=== PATIENT | female | born 1945 | race Caucasian/White ===

== ENCOUNTER 2021-12-29 06:25 | Day surgery (SDC) | payer MEDICARE, BC, SELFPAY ==
[2021-12-29] VITALS (12 sets, daily range): BP systolic 107–176; BP diastolic 60–99; PULSE 64–90; RESP 16–18; TEMP 36.1–36.7; O2SAT 95–100; BMI 25.8
[2021-12-29] MEDS: LACTATED RINGERS 1000 ML 1,000 ML 100 ML IV (07:00)
[2021-12-29] MEDS: SODIUM CHLORIDE 0.9 % (FLUSH) 10 ML SYRINGE IVF (07:01)
[2021-12-29] MEDS: CEFAZOLIN 2 GM INJ IVP (07:44)
[2021-12-29] MEDS: ROPIVACAINE 0.5% 30 ML 150 MG INJECTION (08:25)
--- NOTE | 2021-12-29 08:30 | PM.ORPRC ---
Procedure Note Date of procedure: 12/29/21 Procedure: PREOPERATIVE DIAGNOSIS: 1. Right knee medial and lateral meniscus tear POSTOPERATIVE DIAGNOSIS: 1. Right knee lateral meniscus tear 2. 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 Right knee arthroscopic partial lateral menisectomy SURGEON: Ascencion Fisher M.D. HEALTH PROGRAM DIRECTOR: ABBIE Crawford. Of note, an assistant professor of theater was critical for this case to aid in patient positioning, knee manipulation, instrument exchange, and closure. ANESTHESIA: Spinal EBL: 2ml TOURNIQUET: 30 min at 250 torr COMPLICATIONS: None evident INDICATIONS: The patient is a pleasant 76-year-old female who has experienced right knee pain particularly with any twisting or turning. Physical exam was concerning for medial meniscus tear, this was confirmed on MRI. The MRI also revealed a stress fracture lateral tibial plateau. This was treated nonoperatively with nonweightbearing to allow the bone to heal. Unfortunately, after resolving this, she continued to have pain about the lateral compartment of her knee. This was more suspicious for meniscus pathology. Therefore, attempted nonoperative management has been tried, and failed. Thus, surgery was recommended. FINDINGS: Complex tearing lateral meniscus from the posterior horn to midbody. Posterior root was intact. The lateral femoral condyle showed grade 4 chondromalacia in region measuring 6 x 20 mm in the M-L and A-P directions, respectively. ACL and PCL were intact robust. Medial meniscus was intact without evidence of tearing upon viewing or probing. Medial femoral condyle showed grade 2 chondromalacia broadly to the weight-bearing portion. DESCRIPTION OF PROCEDURE: After a thorough discussion of risks, benefits, and alternatives, the patient was brought to the operating room and placed upon the operating table. Induction of anesthesia was undertaken as previously noted. 1 g IV Ancef was administered within 1 hr of incision preoperatively. Appropriate time-out was performed identifying proper patient, site, and procedure. The right lower extremity was prepped and draped in the appropriate sterile fashion using ChloraPrep. The limb was exsanguinated and tourniquet inflated. Anterolateral and anteromedial portals were established with an 11 blade, and a diagnostic arthroscopy was performed. This identified the findings as noted above. Following the diagnostic arthroscopy, a partial lateral menisectomy was performed with the combination of basket forceps and a motorized shaver. Following this, the meniscus was re-probed and found to be stable. Approximately 40-50 % of the overall meniscus required resection. At this stage, the shaver was reinserted into the suprapatellar pouch and all remaining meniscal debris was evacuated. Instruments were removed, excess fluid was drained, and closure performed with 4-0 Monocryl with Steri-Strips. Dressings were applied, the tourniquet deflated, and the patient was awoken from anesthesia and transferred to the PACU in stable condition. PLAN: 1. Weightbear as tolerated operative extremity. Crutch / walker ambulation assistance PRN. 2. Ice, acetominophen and/or ibuprofen, and Percocet for pain as needed. 3. Knee range of motion and quad sets/straight leg raise regularly 4. Follow up with PA visit in 1-2 weeks for a wound check and possibly to initiate physical therapy. gurpreet
--- NOTE | 2021-12-29 08:37 | W.ANESCHARGE ---
Anesthesia Charges Start Date/Time Anesthesia Start Date: 12/29/21 Anesthesia Start Time: 07:34 Stop Date/Time Anesthesia Stop Date: 12/29/21 Anesthesia Stop Time: 08:38 Summary Emergency: No Extremes of Age: Over 70-CPT 38191
--- NOTE | 2021-12-29 08:40 | PC.NURSE ---
CONTINUOUS IRRIGATION WITH NORMAL SALINE DURING PROCEDURE
--- NOTE | 2021-12-29 10:49 | W.ANESCHARGE ---
Anesthesia Charges Start Date/Time Anesthesia Start Date: 12/29/21 Anesthesia Start Time: 07:34 Stop Date/Time Anesthesia Stop Date: 12/29/21 Anesthesia Stop Time: 08:38 Summary Emergency: No Extremes of Age: Over 70-CPT 23456
== END 2021-12-29 10:35 | disposition home or self-care (01) ==
PROVIDERS: Visit Provider Orthopaedic Surgery Sports Medicine
PROC: (CPT 29870; principal; 2021-12-29 07:45)
DX: M23.251 Derangement of posterior horn of lateral meniscus due to old tear or injury, right knee (principal); M22.41 Chondromalacia patellae, right knee
CPT/HCPCS: 29881; 01400; 99100; J0690; J1100; J2250; J2400; J2405; J2704; J2795; J3010; J7120

== ENCOUNTER 2022-04-02 09:15 | Outpatient (RCR) | payer MEDICARE, BC, SELFPAY ==
--- NOTE | 2022-02-06 11:36 | PT.OPEX ---
Please sign below for physical therapy POC and examination completed on 02/06/22. Thank you. PT [place] Outpatient Eval PT [facility] Outpatient Eval Start: 02/03/22 08:45 Freq: Status: Active Protocol: Document 02/06/22 08:21 TLQ (Rec: 02/06/22 10:00 TLQ [id number]) E-signed By Tami Lewis DPT Physical Therapy Outpatient Evaluation Insurance Information Recert Due Date 04/07/22 Insurance Name Medicare B Medical Diagnosis s/p R knee meniscectomy (Z98.890) Treating Diagnosis Stiffness in R knee (M25.661) R knee pain (M25.561) Difficulty walking (R26.2) Muscle weakness (M62.81) Referring MD Yadav Subjective Subjective Patient had R knee meniscectomy on 12/29/21. Reports its still swollen and fairly uncomfortable. States she ices her knee about 1-2x per day, elevates her foot when icing. Also has compression sleeve that she has been wearing to help with the swelling. If I sit with my foot elevated it feels fine but if I do any physical activity it hurts. Walking and when doing stairs. Her bedroom is upstairs so she tries to only do the stairs once in the morning and once in the afternoon. Has railing on the R side of the stairs when going up. Takes steps one step at a time. Has a recumbent bike that she tries to ride for about 45 minutes a day. PMH: HTN, cancer, osteoporosis , arthritis Pain Comments 5/10 at worst, located on lateral aspect of R knee Date of Last Physician Visit 01/20/22 Date of Surgery (If applicable) 01/29/22 Current Work Status Retired Precautions Therapy Limitations/Systems Review Not Limited Objective Range of Motion Hip: WFL Knee: L 3-0-135 R +13-14-122, more painful with active extension Strength Hip: flexion - L 4/5, R 3/5 abduction - L 4+/5, R 3+/5 internal rotation - L 4/5, R 3 /5 external rotation - L 5/5, R 3 /5 Ankle/foot: dorsiflexion - L 5/5, R 5/5 plantarflexion - L 15, R 6 with 50% excursion Swelling Circumference: 2 proximal knee - L 16cm, R 18.25cm knee - L 16cm, R 17.5cm 2 disital knee - L 14cm, R 15 .25cm Palpation TTP R vastus lateralis and ITB patellar mobility - hypomobile in all glides Balance & Gait Balance: 5xSTS - 36 seconds with arms crossed, weight bears more through LLE Gait: ambulates without use of A.D., antalgic pattern, decreased philip, lacks full knee extension on R, decreased weight shift onto R Sensation/Reflexes Sensation - decreased in toes bilaterally Other/Pertinent Objective Atrophy of R quadricep SLR - able to complete full SLR on R but fatigues quickly with prolonged quadricep activation Stairs - not assessed this visit, plan to assess pattern next visit Functional Test Performed & Score LEFS score (02/06/22) - 34/80 (42.5% functional) MCID - 9 points Assessment Assessment/Impression Patient is a 76 year old female who presents to physical therapy today post R meniscectomy performed on 12/29. Patient has noticeable atrophy of her R quadricep muscle compared to L, has edema around R knee identified with circumferential measurements. Presents with bilateral LE weakness, more pronounced on R. Pain and weakness limiting patients R knee range of motion, rests in 14 degrees of knee flexion, actively lacks 13 degrees from full knee extension. Ambulates with antalgic gait pattern, decreased philip and decreased weight bearing through RLE. Completed 5x sit to stand test in 36 seconds which places her at an increased risk for falls. Patient will greatly benefit from skilled therapeutic intervention to increase strength, improve joint mobility, and improve balance to reduce pain and improve patient's mobility for safe navigation of her home environment. Primary Functional Limitations R knee pain, decreased active R knee range of motion, RLE weakness, antalgic gait pattern, impaired mobility Plan of Care Rehabilitation Potential Good Physical Therapy Goals STG - Patient will improve R knee extension ROM to +5 degrees for improved mobility in 4 weeks. STG - Patient will decrease subjective report of pain from 5/10 to 2/10 for improved symptoms and participation in daily activities in 6 weeks. LTG - Patient will improve R knee extension to neutral for ROM needed for normal gait pattern in 10 weeks. LTG - Gross LE strength will increase to 5/5 for improved functional strength needed for transitional movements in 10 weeks. LTG - Patient will complete 5xSTS in <15 seconds to reduce her risk of falls in 10 weeks . LTG - Patient will adhere to HEP to manage symptoms IND at home in 10 weeks. Treatment Plan/Direct Interventions Electrical Stimulation,Gait Training,Ice/Cold/ Vasopneumatic,Joint Mobilization,Manual Therapy, Therapeutic Activities, Therapeutic Exercises Frequency/Duration 2x/week for 2 weeks followed by 1x/week for 6-8 weeks Patient Will Be Discharged From Therapy Completion of LTG(s),Skills Plateau,Independent w/HEP, Independently Progressing Evaluation Billing Untimed Code Treatment Minutes 20 Complexity Low Certification Information Initial Certification Date 02/06/22 Ending Certification Date 04/07/22 Provider Signature Shows Agreement With POC & Medical Necessity Physician Comment/Change Comment or Changes Physician NPI Number #
== END 2022-05-11 15:59 | disposition home or self-care (01) ==
PROVIDERS: PCP Physician Assistant Surgical; Visit Provider Physician Assistant Surgical
DX: Z98.890 Other specified postprocedural states (principal); Z51.89 Encounter for other specified aftercare
CPT/HCPCS: 97110; 97112; 97140; 97161

== ENCOUNTER 2022-08-10 08:59 | Day surgery (SDC) | payer MEDICARE, BC, SELFPAY ==
[2022-08-10] VITALS (23 sets, daily range): BP systolic 108–179; BP diastolic 62–118; PULSE 59–95; RESP 16–20; TEMP 36.3–37.4; O2SAT 92–99; BMI 26.6
[2022-08-10] MEDS: ACETAMINOPHEN 500 MG TABLET 1000 MG PO ×2 (09:10→17:44)
[2022-08-10] MEDS: CELECOXIB 200 MG CAPSULE PO ×2 (09:10→21:24)
[2022-08-10] MEDS: OXYCODONE (CR) 10 MG TAB.ER.12H PO (09:10)
[2022-08-10] MEDS: SODIUM CHLORIDE 0.9 % (FLUSH) 10 ML SYRINGE IVF (09:45)
[2022-08-10] MEDS: LACTATED RINGERS 1000 ML 1,000 ML 100 ML IV (09:45)
--- NOTE | 2022-08-10 11:01 | CRLHL7_ITS ---
For Patients: As a result of the Cures Act, medical imaging exams and procedure reports are released immediately into your electronic medical record. You may view this report before your referring provider. If you have questions, please contact your health care provider. Indication: Arthroplasty Technique: Two views right knee Findings/Impression: Hardware from a right total knee arthroplasty is in satisfactory position. Bone alignment is normal. No sign of acute fracture. Postop changes are within normal limits. Dictated by Jake Hairston MD @ 08/10/2022 4:05:50 PM (Electronically Signed)
[2022-08-10] MEDS: MIDAZOLAM HCL 1 MG/ML inj IVP (11:58)
[2022-08-10] MEDS: fentaNYL 100 MCG/2 ML inj IVP (11:59)
--- NOTE | 2022-08-10 12:09 | SUR.PREOP ---
TIME?OUT:?1158 PT/Jazmin Olivares RN/Dr. Yogi MDA?VERIFICATION?OF?SURGICAL?SITE right knee,?PROCEDURE,?AND?CONSENT OBTAINED?PRIOR?TO?INVASIVE?PROCEDURE.
[2022-08-10] MEDS: CEFAZOLIN 2 GM in 0.9 % SODIUM CHLORIDE Mini-bag 100 ML IVPB ×2 (12:19→18:18)
[2022-08-10] MEDS: TRANEXAMIC ACID 100 MG/ML INJ 1000 MG IV (12:22)
--- NOTE | 2022-08-10 12:49 | W.ANESCHARGE ---
Anesthesia Charges Start Date/Time Anesthesia Start Date: 08/10/22 Anesthesia Start Time: 12:12 Stop Date/Time Anesthesia Stop Date: 08/10/22 Anesthesia Stop Time: 14:26 Summary Extremes of Age - Over 70 or under 1: MDA
--- NOTE | 2022-08-10 12:49 | W.PM.NB ---
Nerve Block Nerve Block Time Seen by Provider: 12:03 Date Seen: 08/10/22 Type of block requested by surgeon for post-operative analgesia: adductor canal Side: right Time out performed: Yes Verification of patient name: Yes Verification of date of : Yes Site marking: site marked Name of person performing procedure: Yogi Continuous monitoring Was continuous monitoring of O2 sat, B/P, vehicle monitor technician, recorded every 15 minutes?: Yes Procedure Checklist: sterile prep, needles and gloves Ultrasound guided. Images saved: Yes Medications given in 5ml increments after negative aspiration: Ropivicaine %: 0.5 mL: 20 Needle gauge: 20 Decadron (mg): 10 Precedex (mcg): 25 Patient tolerated procedure well: Yes Additional comments: Needle noted adjacent to nerve Block Charges Block Charge (with Pro Fee): Femoral Nerve Use of Ultrasound Machine for Block: Yes- US Guidance/pain block
--- NOTE | 2022-08-10 12:50 | P.NB_ITS ---
Nerve Block Nerve Block Time Seen by Provider: 12:03 Date Seen: 08/10/22 Type of block requested by surgeon for post-operative analgesia: geniculars Side: right Time out performed: Yes Verification of patient name: Yes Verification of date of : Yes Site marking: site marked Name of person performing procedure: Yogi Continuous monitoring Was continuous monitoring of O2 sat, B/P, environmental monitoring technician, recorded every 15 minutes?: Yes Procedure Checklist: sterile prep, needles and gloves Medications given in 5ml increments after negative aspiration: Ropivicaine %: 0.5 mL: 9 Needle gauge: 25 Patient tolerated procedure well: Yes Block Charges Block Charge (with Pro Fee): Genicular Nerve Block Use of Ultrasound Machine for Block: No
--- NOTE | 2022-08-10 13:30 | W.ANESCHARGE ---
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
--- NOTE | 2022-08-10 13:38 | PM.ORPRC ---
Procedure Note Date of procedure: 08/10/22 Procedure: PREOPERATIVE DIAGNOSIS: 1. Right knee osteoarthritis, primary, severe POSTOPERATIVE DIAGNOSIS: 1. Right knee osteoarthritis, primary, severe PROCEDURE: 1. Right total knee arthroplasty SURGEON: Ascencion Fisher MD. GIANT TIRE REPAIRER: Ramón Yadav PA-C - Of note, a skilled assistant construction superintendent was critical for this case to aid in patient positioning, tissue retraction, limb manipulation/positioning, and closure. ANESTHESIA: Spinal anesthetic IMPLANTS: DePuy J&J all cemented TKA - Attune PS femur size 6 narrow, size 4 tibia, 5 poly spacer, 35 mm patella TOURNIQUET: 90 min at 300 torr EBL: 50 ml COMPLICATIONS: None evident INDICATIONS: The patient is a pleasant 77-year-old female who has experienced severe right knee pain and difficulty bearing weight. Workup included x-rays which revealed severe osteoarthrosis in the knee. Given the deformity, the dysfunction, and the pain, as well as the failure of nonoperative management, recommendation was made for surgery. FINDINGS: Full-thickness chondral loss lateral compartment broadly with subchondral sclerotic bone. The remaining knee also shows significant chondromalacia. Large effusion upon entering the joint. DESCRIPTION OF PROCEDURE: Following a thorough discussion of risks, benefits, and alternatives consent was obtained and the right knee was marked. The patient was brought to the operating room and placed supine on the operating table. Induction of anesthesia was undertaken. 2 g IV Ancef and 1 g tranexamic acid was administered within 1 hr of incision preoperatively. Proper time-out was performed identifying proper patient, site, procedure. The operative extremity was prepped and draped in the appropriate sterile fashion using ChloraPrep after the patient was positioned supine with all bony prominences well padded. A longitudinal, anterior, midline skin incision was made starting approximately 3cm proximal to the superior pole of the patella and advanced distal to the tibial tubercle. A median parapatellar arthrotomy was created. A medial subperiosteal sleeve was created with knife, schuster elevator and curved osteotome. The retropatellar fatpad was resected and the synovium in the suprapatellar pouch excised to visualize the anterior femoral cortex. Femoral preparation was performed via an intramedullary guide. Step drill allowed access into the femoral canal. The distal cutting guide was placed with 5? of valgus and 10 mm cut on the distal femur, but 2 more mm did require resection. Femur was sized using a anterior referencing guide in 3? of external rotation. This found have a best fit with the sizing noted above. The 4 in 1 cutting block was then placed, and the distal femur shaped accordingly. The box cut was then created and the trial implant inserted to confirm appropriate fit. We turned our attention to the proximal tibia. Extramedullary guide was utilized for cutting with the goal of being 90 degree cut from the mechanical axis of the tibia in the varus/valgus plane utilizing tibial crest as the primary alignment. Initially a 2 mm resection was performed from the medial tibial plateau, but another 4 mm did require resection. Ultimately, balancing was achieved in both flexion and extension in both varus and valgus. The knee was able to achieve full extension as well comfortably. The patella was initially measured and found have a thickness of 21 mm. It was resected back to approximately 14 mm. It was sized to be a best fit with as noted above. This was drilled, trial placed. All trials were placed and found to have an excellent stability and balance. At this stage, trial implants were removed, the knee was thoroughly irrigated with normal saline, and the cement was mixed. After irrigation, the knee was thoroughly dried, and cement placed, with the real tibial and femoral implants placed along with the patella. Trial poly spacer was placed and confirmed to have excellent range of motion and full extension, and the real poly spacer opened and inserted. All extra cement was removed, and a 3 min Betadine soak performed. Finally, a final irrigation round with normal saline was performed. Closure performed with 0 Vicryl and #0 Stratafix for the quad tendon/retinaculum. 2-0 Vicryl for the subcutaneous and 4-0 Stratafix for subcuticular closure. Dressings were applied and the patient was awoken from anesthesia after the tourniquet deflated and transferred the PACU in stable condition. A skilled assistant construction superintendent was critical for this case to aid in patient positioning, tissue retraction, bone exposure, limb manipulation/positioning, patient safety, and closure. PLAN: 1. Weight bear as tolerated operative extremity. 2. 23 hr perioperative antibiotics. 3. Ice. 4. PT/OT consults for ambulation assistance/mobility education. 5. Social work consult for discharge planning. 6. DVT prophylaxis with at SCDs, Pascual Hose, and aspirin twice daily.
[2022-08-10] MEDS: LACTATED RINGERS 1000 ML 1,000 ML 75 ML IV (15:22)
--- NOTE | 2022-08-10 16:22 | P.IMCN_ITS ---
Date of Consult Patient: Jose Armando Patient Consult date: 08/10/22 Requesting Physician: Orthopedics Primary Care Provider: Kinsey Hart MD Consult Narrative Reason for consult: Management of medical problems Narrative: Taylor Mendieta is a 77 year old female seen in consultation for management of medical problems following knee arthroplasty. Patient reports that she is already beginning to have significant knee pain. Her spinal anesthesia is worn off. She is not sure if her femoral nerve block is working. She otherwise feels well. No nausea, chills, dyspnea. Preoperatively she reports she is doing well with no recent illness. Preop physical did not identify any significant concerns for the perioperative period. She has had previous surgeries without problems with bleeding clotting or anesthesia. 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 Sister Breast cancer High blood pressure Social History (Updated 08/10/22 @ 16:27 by Jericho Jiménez MD) Narrative: She lives with her . They recently sold their [place] home and have moved into a 1 level town home. She does not smoke. She drinks alcohol about once a month. Highest level of school completed/degree received: some college, no degree Smoking Status: Never smoker Do you use any of these nicotine containing products: None Second hand tobacco smoke exposure: No How often do you have a drink containing alcohol: monthly or less Alcohol type: wine How many standard drinks containing alcohol do you have on a typical day: 1 or 2 How often do you have six or more drinks on one occasion: Never AUDIT-C Alcohol total score: 1 Non-prescribed substance use: denies use Caffeine: No Are you using contraception or practicing any form of control: No service: No Meds Home Medications and Allergies Home Medications Medication Instructions Recorded Confirmed Type acetaminophen 500 mg tablet 500 mg PO Q6H PRN 12/22/21 08/10/22 History cholecalciferol (vitamin D3) 25 1,000 unit PO DAILY 12/22/21 08/10/22 History mcg (1,000 unit) tablet denosumab 60 mg/mL subcutaneous 60 mg subcut [id number] 12/22/21 08/10/22 History syringe multivitamin 1 tab PO DAILY 12/22/21 08/10/22 History anastrozole 1 mg tablet 1 mg PO DAILY 12/26/21 08/10/22 History amlodipine 5 mg tablet 5 mg PO DAILY 03/17/22 08/10/22 History gabapentin 300 mg capsule 300 mg PO HS PRN 03/17/22 08/10/22 History calcium carbonate 500 mg calcium 500 mg PO DAILY 08/10/22 08/10/22 History (1,250 mg) tablet (Oyster Shell Calcium) famotidine-Ca carb-mag hydrox 10 1 tab PO DAILY PRN 08/10/22 08/10/22 History mg-800 mg-165 mg chewable tablet (Acid Purchase Analyst Complete (famotidine)) Allergies Allergy/AdvReac Type Severity Reaction Status Date / Time lisinopril Allergy Mild Cough Verified 08/10/22 09:09 penicillin V Allergy Mild Rash Verified 08/10/22 09:09 Exam Narrative: Exam Narrative: She is alert and appears in no distress. She gives her own history. Eyes normal. Oropharynx normal. Neck is supple without mass or adenopathy. Respirations are clear to auscultation. Cardiovascular: S1, S2, regular rate and rhythm. No murmur gallop or rub. Abdomen: Bowel sounds active. Abdomen is soft without tenderness or mass. Extremities with intact pulses and sensation. Good capillary refill. No edema. Bilateral foot and ankle strength is normal Const: Vital Signs, click to edit/add: Vital Signs - 24 hr 08/10/22 09:46 08/10/22 11:58 08/10/22 12:04 Temperature 99.3 F Pulse Rate 87 75 74 Pulse Rate [Left P ulse Oximeter] Respiratory Rate 16 16 16 Blood Pressure 158/99 H 170/90 H 145/89 H Blood Pressure [Ri ght Arm] Pulse Oximetry 99 99 98 Oxygen Delivery Me thod Room Air Nasal Cannula Nasal Cannula Oxygen Flow Rate 2 2 08/10/22 14:21 08/10/22 14:25 08/10/22 14:30 Temperature 97.3 F L Pulse Rate 63 59 L 73 Pulse Rate [Left P ulse Oximeter] Respiratory Rate 20 16 16 Blood Pressure 111/68 108/62 120/68 Blood Pressure [Ri ght Arm] Pulse Oximetry 94 93 92 Oxygen Delivery Me thod Room Air Oxygen Flow Rate 08/10/22 14:35 08/10/22 14:40 08/10/22 14:45 Temperature Pulse Rate 67 73 80 Pulse Rate [Left P ulse Oximeter] Respiratory Rate 18 18 16 Blood Pressure 127/68 139/81 150/97 H Blood Pressure [Ri ght Arm] Pulse Oximetry 97 95 96 Oxygen Delivery Me thod Oxygen Flow Rate 08/10/22 14:49 08/10/22 15:01 08/10/22 15:00 Temperature 97.3 F L 97.3 F L Pulse Rate 74 70 Pulse Rate [Left P ulse Oximeter] Respiratory Rate 16 20 Blood Pressure 150/88 H Blood Pressure [Ri ght Arm] 160/92 H Pulse Oximetry 96 96 Oxygen Delivery Me thod Room Air Oxygen Flow Rate 08/10/22 15:15 08/10/22 15:30 08/10/22 15:45 Temperature 97.5 F L 97.3 F L 98 F Pulse Rate Pulse Rate [Left P ulse Oximeter] 68 75 74 Respiratory Rate 20 20 20 Blood Pressure Blood Pressure [Ri ght Arm] 163/89 H 160/118 H 163/90 H Pulse Oximetry 95 93 96 Oxygen Delivery Me thod Room Air Room Air Room Air Oxygen Flow Rate 08/10/22 16:00 Temperature 98 F Pulse Rate Pulse Rate [Left P ulse Oximeter] 79 Respiratory Rate 20 Blood Pressure Blood Pressure [Ri ght Arm] 169/96 H Pulse Oximetry 97 Oxygen Delivery Me thod Room Air Oxygen Flow Rate Documenting provider has reviewed patient's vital signs: yes Assessment and Plan Assessment and plan (1) Status post total right knee replacement: Problem comment: 08/10/2022, Dr. Fisher Status: Acute (2) Hypertension: Problem comment: Resume antihypertensive medicine Status: Acute (3) Osteoporosis: Problem comment: History of compression fractures and other fractures. On Prolia, calcium, vitamin-D Status: Acute Plan Routine pain management, therapy, anticipate discharge to home tomorrow with for outpatient follow-up. Total time spent today is 30 minutes, 20 minutes in coordination of care discussing with patient, spouse and other providers ongoing evaluation managem ent of medical problems and rehab from knee surgery
[2022-08-10] MEDS: OXYCODONE 5 MG TABLET PO ×3 (16:26→21:24)
--- NOTE | 2022-08-10 18:42 | PC.NURSE ---
End of Shift: Patient pleasant and cooperative. Patient hypertensive, but vitally stable, lung clear, BS WNL, IV running LR at 75. Patient currently rates pain 3/10, 5 of oxy given once, and 10 of oxy given once. Patient 1 assist, walker, lindsey. Patient tolerating regular diet and urinated x1 on the walk to the toilet, then could not urinate in the toilet. Patient right knee incision, C/D/I. Patient up in chair this evening.
[2022-08-10] MEDS: ASPIRIN 81 MG TABLET EC PO (21:24)
[2022-08-10] MEDS: SENNOSIDES 1 TAB TABLET 2 TAB PO (21:24)
[2022-08-11] MEDS: OXYCODONE 5 MG TABLET PO ×3 (00:20→08:31)
[2022-08-11] MEDS: ACETAMINOPHEN 500 MG TABLET 1000 MG PO ×3 (00:20→13:12)
[2022-08-11] MEDS: CEFAZOLIN 2 GM in 0.9 % SODIUM CHLORIDE Mini-bag 100 ML IVPB ×2 (02:23→10:50)
[2022-08-11 03:00] VITALS: BP 175/87; PULSE 86; RESP 20; TEMP 36.5; O2SAT 98
--- NOTE | 2022-08-11 05:14 | PC.NURSE ---
End of Shift: Patient pleasant and cooperative. Afebrile. Dressing to right knee C/D/I. CMS intact. Rating pain in right knee up to 5/10 and PRN Oxycodone given x2. Up to chair and bathroom with 1 assist, walker and gait belt. Tolerating regular diet with no nausea.
[2022-08-11 06:48] VITALS: BP 173/83; PULSE 97; RESP 18; TEMP 36.4; O2SAT 94
[2022-08-11 06:51] VITALS: PULSE 97; RESP 18
[2022-08-11 07:15] LABS: Hematocrit 37.2 % (33.0-51.0); Hemoglobin* 12.4 gm/dL (12.0-16.0); Immature Granulocytes Pct Auto 0.2 %; Lymphocytes Percent Auto 9.4 % (20-44); Mean Corpuscular HGB Conc 33 gm/dL (32-36); Mean Corpuscular Hemoglobin 29 pg (26-34); Mean Corpuscular Volume 88 fL (80-100); Monocytes Percent Auto 5.4 % (0.0-11.0); Platelet Count* 266 K/uL (140-440); RDW Coefficient of Variation % 13.4 % (11.5-15.5); Red Blood Count 4.25 m/uL (4.00-5.20); White Blood Count* 11.12 K/uL (4.50-11.00)
[2022-08-11 07:16] LABS: Slide Review Reflex No
[2022-08-11 07:46] LABS: Potassium* 4.4 mmol/L (3.6-5.1); Sodium* 137 mmol/L (135-149)
[2022-08-11 07:49] LABS: Blood Urea Nitrogen* 13 mg/dL (7-30); Creatinine* 0.6 mg/dL (0.5-1.5); Est. Creatinine Clearance* 47.27; Estimated Glomerular Filt Rate 94 ml/min
[2022-08-11] MEDS: AMLODIPINE 5 MG TABLET PO (08:31)
[2022-08-11] MEDS: ASPIRIN 81 MG TABLET EC PO (08:31)
[2022-08-11] MEDS: CALCIUM CARBONATE 500 MG TABLET PO (08:31)
[2022-08-11] MEDS: CELECOXIB 200 MG CAPSULE PO (08:31)
[2022-08-11] MEDS: SENNOSIDES 1 TAB TABLET 2 TAB PO (08:31)
[2022-08-11] MEDS: MULTIVITAMIN/MINERALS 1 TABLET 1 TAB PO (08:31)
[2022-08-11] MEDS: ONDANSETRON 2 MG/ML inj 4 MG IVP (09:37)
[2022-08-11] MEDS: LORazepam 0.5 MG TABLET PO (09:37)
--- NOTE | 2022-08-11 10:05 | PM.ORPN ---
Subjective Subjective Date Seen: 08/11/22 Principal diagnosis: Status postop day 1 Right total knee arthroplasty Interval history: Patient reports doing okay. No acute events over night. Complains of N/V, 2 episodes of emesis this morning. Pain managed with scheduled/PRN medications and ice. DVT prophylaxis ASA, bilateral knee high Pascual stockings, and SCDs. Mildly dizzy with ambulation. Denies fevers, chills, aches, CP, SOB/DILLON. Ortho Exam Narrative Exam Narrative: -Patient appears comfortable walking with PT in hallways; no apparent acute distress. Acute N/V with positive emesis during walk, had to sit down and get wheeled back to her room. Once at rest, no further vomiting; antiemetic meds provided. -Alert and oriented times 3 -Operative knee mildly swollen; soft tissues supple; no ecchymosis; no erythematous streaking Warmth appropriate -Surgical dressing clean, dry, intact; no drainage -Bilateral calfs soft; no significant swelling, edema, tenderness, erythema, discoloration, warmth, or palpable cords -2+ DP/PT pulses, intact dermatomes and myotomes distally (5/5 strength) Const Vital Signs, click to edit/add: Vital Signs - 24 hr 08/10/22 11:58 08/10/22 12:04 08/10/22 14:21 Temperature 97.3 F L Pulse Rate 75 74 63 Pulse Rate [Left Pulse Oximeter] Respiratory Rate 16 16 20 Blood Pressure 170/90 H 145/89 H 111/68 Blood Pressure [Left Arm] Blood Pressure [Right Arm] Pulse Oximetry 99 98 94 Oxygen Delivery Method Nasal Cannula Nasal Cannula Room Air Oxygen Flow Rate 2 2 08/10/22 14:25 08/10/22 14:30 08/10/22 14:35 Temperature Pulse Rate 59 L 73 67 Pulse Rate [Left Pulse Oximeter] Respiratory Rate 16 16 18 Blood Pressure 108/62 120/68 127/68 Blood Pressure [Left Arm] Blood Pressure [Right Arm] Pulse Oximetry 93 92 97 Oxygen Delivery Method Oxygen Flow Rate 08/10/22 14:40 08/10/22 14:45 08/10/22 14:49 Temperature 97.3 F L Pulse Rate 73 80 74 Pulse Rate [Left Pulse Oximeter] Respiratory Rate 18 16 16 Blood Pressure 139/81 150/97 H 150/88 H Blood Pressure [Left Arm] Blood Pressure [Right Arm] Pulse Oximetry 95 96 96 Oxygen Delivery Method Oxygen Flow Rate 08/10/22 15:01 08/10/22 15:00 08/10/22 15:15 Temperature 97.3 F L 97.5 F L Pulse Rate 70 Pulse Rate [Left Pulse Oximeter] 68 Respiratory Rate 20 20 Blood Pressure Blood Pressure [Left Arm] Blood Pressure [Right Arm] 160/92 H 163/89 H Pulse Oximetry 96 95 Oxygen Delivery Method Room Air Room Air Oxygen Flow Rate 08/10/22 15:30 08/10/22 15:45 08/10/22 16:00 Temperature 97.3 F L 98 F 98 F Pulse Rate Pulse Rate [Left Pulse Oximeter] 75 74 79 Respiratory Rate 20 20 20 Blood Pressure Blood Pressure [Left Arm] Blood Pressure [Right Arm] 160/118 H 163/90 H 169/96 H Pulse Oximetry 93 96 97 Oxygen Delivery Method Room Air Room Air Room Air Oxygen Flow Rate 08/10/22 16:30 08/10/22 17:00 08/10/22 18:18 Temperature 97.7 F 98 F 98.5 F Pulse Rate Pulse Rate [Left Pulse Oximeter] 78 84 95 Respiratory Rate 20 20 16 Blood Pressure Blood Pressure [Left Arm] 179/88 H Blood Pressure [Right Arm] 173/95 H 175/91 H Pulse Oximetry 94 94 92 Oxygen Delivery Method Room Air Room Air Room Air Oxygen Flow Rate 08/10/22 19:00 08/10/22 20:00 08/10/22 21:00 Temperature 98.6 F 98.0 F Pulse Rate Pulse Rate [Left Pulse Oximeter] 91 93 91 Respiratory Rate 16 16 16 Blood Pressure Blood Pressure [Left Arm] 155/89 H 167/80 H Blood Pressure [Right Arm] 170/84 H Pulse Oximetry 97 96 96 Oxygen Delivery Method Room Air Room Air Room Air Oxygen Flow Rate 08/10/22 23:00 08/10/22 23:00 08/10/22 23:00 Temperature 98.0 F Pulse Rate Pulse Rate [Left Pulse Oximeter] 87 Respiratory Rate 18 18 Blood Pressure Blood Pressure [Left Arm] Blood Pressure [Right Arm] 156/91 H Pulse Oximetry 93 93 Oxygen Delivery Method Room Air Oxygen Flow Rate 08/11/22 03:00 08/11/22 06:48 08/11/22 06:48 Temperature 97.7 F 97.6 F Pulse Rate Pulse Rate [Left Pulse Oximeter] 86 97 Respiratory Rate 20 18 Blood Pressure Blood Pressure [Left Arm] 173/83 H Blood Pressure [Right Arm] 175/87 H Pulse Oximetry 98 94 94 Oxygen Delivery Method Room Air Room Air Oxygen Flow Rate 08/11/22 06:51 Temperature Pulse Rate Pulse Rate [Left Pulse Oximeter] 97 Respiratory Rate 18 Blood Pressure Blood Pressure [Left Arm] Blood Pressure [Right Arm] Pulse Oximetry Oxygen Delivery Method Oxygen Flow Rate Assessment and Plan Assessment and plan (1) Status post total right knee replacement: Problem details: POD 1, 08/10/2022, Dr. Fisher Status: Acute (2) Hypertension: Problem details: Resume antihypertensive medicine Status: Acute (3) Osteoporosis: Problem details: History of compression fractures and other fractures. On Prolia, calcium, vitamin-D Status: Acute Plan - Complete 23 hour perioperative antibiotics. - PT/OT consult for education and assistance. - Social work consult for discharge planning - Prescribed analgesics as needed - DVT prophylaxis: ASA, bilateral knee high Pascual Hose stockings and SCDs - Anticipation is for discharge to home once medically cleared; will see how her N/V will do. From an orthopedic standpoint, she is okay to discharge when medically appropriate.
--- NOTE | 2022-08-11 10:37 | P.DS_ITS ---
DS: Providers Provider Time Seen by Provider: 09:40 Date Seen: 08/11/22 Primary care physician: Kinsey Hart MD Consults: 08/10/22 14:54 Consult to Occupational Therapy [CONS] Routine Comment: Reason(s) for OT Consult:: ADLs Prior to Discharge Any Restrictions?:: See Comment Comment: See nursing activity order for any restrictions. Consult to Physical Therapy [CONS] Routine Comment: Ambulate in the [place] today. Reason(s) for PT Consult:: TKA TX Protocol POD#0 Any Restrictions?:: See Comment Comment: See nursing activity order for any restrictions. Consult to Physician [CONS] Routine Comment: Consulting Provider: Hospitalists Has provider been notified: No Consult to Nursery Nurse [CONS] Routine Comment: Reason for Consult:: Discharge Planning Needs Attending Physician on discharge: Ascencion Fisher MD Date of Discharge: 08/11/22 DS: Diagnosis Discharge Diagnosis (1) Hypertension: Status: Acute Problem details: Continue antihypertensive medicine (2) Osteoporosis: Status: Acute Problem details: History of compression fractures and other fractures. On Prolia, calcium, vitamin-D (3) Status post total right knee replacement: Status: Acute Problem details: 08/10/2022, Dr. Fisher post op VTE prophylaxis with BID baby ASA DS: Summary Hospital Course Hospital Course: 77-year-old female with history of hypertension and osteoporosis who underwent an elective right total knee arthroplasty. Postoperatively she has had some nausea, but has otherwise been doing well. Please see above for more details on her hospital stay. Time Spent with Patient Time attestation: Total time spent providing and/or coordinating discharge services: Exam Narrative: Exam Narrative: General: No acute distress. Awake, alert, oriented x3. No pallor. No jaundice. Oropharynx: Clear. Mucous membranes moist. Cardiovascular: Regular rate and rhythm. No murmurs, gallops, or rubs. Respiratory: Clear to auscultation bilaterally. No wheezes or crackles. Abdomen: Bowel sounds present. Soft, nondistended, nontender. Extremities: Right knee bandage is clean, dry, and intact. Const: Vital Signs, click to edit/add: Vital Signs - 24 hr 08/10/22 11:58 08/10/22 12:04 08/10/22 14:21 Temperature 97.3 F L Pulse Rate 75 74 63 Pulse Rate [Left P ulse Oximeter] Respiratory Rate 16 16 20 Blood Pressure 170/90 H 145/89 H 111/68 Blood Pressure [Le ft Arm] Blood Pressure [Ri ght Arm] Pulse Oximetry 99 98 94 Oxygen Delivery Me thod Nasal Cannula Nasal Cannula Room Air Oxygen Flow Rate 2 2 08/10/22 14:25 08/10/22 14:30 08/10/22 14:35 Temperature Pulse Rate 59 L 73 67 Pulse Rate [Left P ulse Oximeter] Respiratory Rate 16 16 18 Blood Pressure 108/62 120/68 127/68 Blood Pressure [Le ft Arm] Blood Pressure [Ri ght Arm] Pulse Oximetry 93 92 97 Oxygen Delivery Me thod Oxygen Flow Rate 08/10/22 14:40 08/10/22 14:45 08/10/22 14:49 Temperature 97.3 F L Pulse Rate 73 80 74 Pulse Rate [Left P ulse Oximeter] Respiratory Rate 18 16 16 Blood Pressure 139/81 150/97 H 150/88 H Blood Pressure [Le ft Arm] Blood Pressure [Ri ght Arm] Pulse Oximetry 95 96 96 Oxygen Delivery Me thod Oxygen Flow Rate 08/10/22 15:01 08/10/22 15:00 08/10/22 15:15 Temperature 97.3 F L 97.5 F L Pulse Rate 70 Pulse Rate [Left P ulse Oximeter] 68 Respiratory Rate 20 20 Blood Pressure Blood Pressure [Le ft Arm] Blood Pressure [Ri ght Arm] 160/92 H 163/89 H Pulse Oximetry 96 95 Oxygen Delivery Me thod Room Air Room Air Oxygen Flow Rate 08/10/22 15:30 08/10/22 15:45 08/10/22 16:00 Temperature 97.3 F L 98 F 98 F Pulse Rate Pulse Rate [Left P ulse Oximeter] 75 74 79 Respiratory Rate 20 20 20 Blood Pressure Blood Pressure [Le ft Arm] Blood Pressure [Ri ght Arm] 160/118 H 163/90 H 169/96 H Pulse Oximetry 93 96 97 Oxygen Delivery Me thod Room Air Room Air Room Air Oxygen Flow Rate 08/10/22 16:30 08/10/22 17:00 08/10/22 18:18 Temperature 97.7 F 98 F 98.5 F Pulse Rate Pulse Rate [Left P ulse Oximeter] 78 84 95 Respiratory Rate 20 20 16 Blood Pressure Blood Pressure [Le ft Arm] 179/88 H Blood Pressure [Ri ght Arm] 173/95 H 175/91 H Pulse Oximetry 94 94 92 Oxygen Delivery Me thod Room Air Room Air Room Air Oxygen Flow Rate 08/10/22 19:00 08/10/22 20:00 08/10/22 21:00 Temperature 98.6 F 98.0 F Pulse Rate Pulse Rate [Left P ulse Oximeter] 91 93 91 Respiratory Rate 16 16 16 Blood Pressure Blood Pressure [Le ft Arm] 155/89 H 167/80 H Blood Pressure [Ri ght Arm] 170/84 H Pulse Oximetry 97 96 96 Oxygen Delivery Me thod Room Air Room Air Room Air Oxygen Flow Rate 08/10/22 23:00 08/10/22 23:00 08/10/22 23:00 Temperature 98.0 F Pulse Rate Pulse Rate [Left P ulse Oximeter] 87 Respiratory Rate 18 18 Blood Pressure Blood Pressure [Le ft Arm] Blood Pressure [Ri ght Arm] 156/91 H Pulse Oximetry 93 93 Oxygen Delivery Me thod Room Air Oxygen Flow Rate 08/11/22 03:00 08/11/22 06:48 08/11/22 06:48 Temperature 97.7 F 97.6 F Pulse Rate Pulse Rate [Left P ulse Oximeter] 86 97 Respiratory Rate 20 18 Blood Pressure Blood Pressure [Le ft Arm] 173/83 H Blood Pressure [Ri ght Arm] 175/87 H Pulse Oximetry 98 94 94 Oxygen Delivery Me thod Room Air Room Air Oxygen Flow Rate 08/11/22 06:51 Temperature Pulse Rate Pulse Rate [Left P ulse Oximeter] 97 Respiratory Rate 18 Blood Pressure Blood Pressure [Le ft Arm] Blood Pressure [Ri ght Arm] Pulse Oximetry Oxygen Delivery Me thod Oxygen Flow Rate Documenting provider has reviewed patient's vital signs: yes DS: Data Data Completed and Pending Completed studies during hospitalization: Ordering Physician: Ascecnion Fisher M.D. Date of Service: 08/10/22 Procedure(s): XR knee RT 2V Accession Number(s): [id number] cc: Kinsey Hart M.D.; Ascencion Fisher M.D.~ For Patients:? As a result of the Cures Act, medical imaging exams and procedure reports are released immediately into your electronic medical record.? You may view this report before your referring provider.? If you have questions, please contact your health care provider. Indication: Arthroplasty Technique: Two views right knee Findings/Impression: Hardware from a right total knee arthroplasty is in satisfactory position. Bone alignment is normal. No sign of acute fracture. Postop changes are within normal limits. Dictated by Jake Hairston MD @ 08/10/2022 4:05:50 PM (Electronically Signed) Labs on day of discharge: Labs from last 24 hours 08/11/22 08/11/22 06:10 06:10 WBC 11.12 H RBC 4.25 Hgb 12.4 Hct 37.2 MCV 88 MCH 29 MCHC 33 RDW Coeff of Dwight 13.4 Plt Count 266 Neut % (Auto) 85.0 H Lymph % (Auto) 9.4 L Bledsoe % (Auto) 5.4 Eos % (Auto) 0.0 Baso % (Auto) 0.0 Neut # (Auto) 9.50 H Lymph # (Auto) 1.00 Bledsoe # (Auto) 0.60 Eos # (Auto) 0.00 Baso # (Auto) 0.00 Sodium 137 Potassium 4.4 BUN 13 Creatinine 0.6 Estimated Creat Clear 47.27 Estimated GFR 94 Discharge Plan Discharge Disposition: Home, Self-Care Discharging Surgeon: Ascencion Fisher Follow-Up Appointment: 1 week PO with [facility] Prescriptions: New aspirin 81 mg tablet,delayed release (DR/EC) 81 mg PO BID Qty: 60 0RF Rx Instructions: Medication to help prevent blood clots postoperatively; take TWICE daily. sennosides-docusate sodium [Senna-S] 8.6-50 mg tablet 1 - 4 tab-cap PO BID PRN (Reason: constipation) Qty: 60 0RF Rx Instructions: Hold medication if experiencing loose stools. celecoxib 100 mg capsule 100 mg PO BID Qty: 60 0RF acetaminophen 500 mg capsule 500 - 1,000 mg PO Q6H MDD 4000mg PRNQty: 100 0RF oxycodone 5 mg tablet 2.5 - 5 mg PO Q4-6H MDD 6 PRN (Reason: pain) Qty: 42 0RF Rx Instructions: Take as needed for postop pain: 2.5mg mild pain, 5mg moderate-severe pain; wean as tolerated. Continued gabapentin 300 mg capsule 300 mg PO HS PRN amlodipine 5 mg tablet 5 mg PO DAILY denosumab 60 mg/mL syringe 60 mg subcut [id number] Rx Instructions: PATIENT RECEIVES EVERY 6 MONTHS OUT PATIENT INFUSION cholecalciferol (vitamin D3) 25 mcg (1,000 unit) tablet 1,000 unit PO DAILY multivitamin Tablet 1 tab PO DAILY anastrozole 1 mg tablet 1 mg PO DAILY calcium carbonate [Oyster Shell Calcium] 500 mg calcium (1,250 mg) tablet 500 mg PO DAILY Acid Lever Operator Complete (famot) 10-800-165 mg tablet,chewable 1 tab PO DAILY PRN Discontinued acetaminophen 500 mg tablet 500 mg PO Q6H PRN Activity Level: Activity as Tolerated, Weight Bearing as Tolerated and Use Walker Activity Detail: Wound: ?Do not remove original dressing; we will remove this at first postop visit in 1 week. Only remove dressing if integrity is in question. ?No immersing wound in water; showering okay; light scrub with your hand and body soap, rinse, dab dry ?Sutures are under the skin, will dissolve; allow surgical glue to come off naturally; do not scrub the wound or apply ointments/lotions ?Call our office with any redness that streaks, excessive drainage from the wound, or wound gapping. Ice/Elevate: ?Ice as needed for swelling and discomfort (cryocuff or ice pack); elevate frequently above the heart DELVIS socks: ?Wear for 1 month, remove for 1 hour 3 times per day ?These are frustrating to take on/off, but are important for blood clot prevention for 1 month after surgery Blood Clot Prevention (DVT): ?Medication: 81 mg aspirin by mouth twice daily (1 month) Driving: ?Do not drive while taking narcotic pain medication ?Anticipate 4-6 weeks no driving if operative leg is driving leg Dental: ?No elective dental work for 6 months post-op. If there is an urgent/emergent dental need, contact our office for an antibiotic prescription. Smoking/Alcohol: ?Do not smoke; do no drink alcohol especially when taking postoperative oral narcotic medication Seek Care from you Primary Care Provider if you experience the following issues in the postoperative phase and beyond: ?Bacterial infections such as: pneumonia, bacterial skin infection (cellulitis), UTI, high fever, chills unrelated to the operative body part - call your primary care physician urgently for treatment in hopes to protect your health and the metal implant. Referrals: ?PT, OT per patient preference - evaluate treat total knee arthroplasty protocol (gait training, ROM, ADLs) Follow up: ?Ortho surgeon follow-up in 6 weeks; repeat radiographs three views operative knee ?[facility] visit in 1 week *If there are any acute concerns regarding your surgery, please call our orthopedic clinic ([phone]) Discharge Diet: Regular Patient Instructions: Acetaminophen (By mouth), Aspirin (By mouth), Oxycodone, Rapid Release (By mouth), Celecoxib (By mouth), Senna (By mouth) (Sen, Senna- lax), Knee Replacement (DC) Forms: Work/School Release Follow-up: Kinsey Hart MD [Primary Care Provider] - Ramón Yadav PA-C [Physician [employer]] - 08/20/22 8:30 am ([facility]) Discharge Orders: Discharge Order (Routine); Ordered 08/11/22 Ordered By: Ramón Yadav Consulting provider completed their portion of the discharge: Yes
--- NOTE | 2022-08-11 12:02 | PC.SOCIAL ---
Met with pt in pt's room. Discussed discharge plans with pt. Pt states that she has her and daughter to assist her with recovery. Pt's daughter is from [place] and came to [place] to assist pt in recovery and is here for two weeks. Pt states that her home is all handicap accessible and she has everything set up at home. Informed pt she can reach out to social work if she has any questions. Social work will follow up as necessary.
[2022-08-11 12:22] VITALS: BP 173/83; PULSE 97; RESP 18; TEMP 36.4; O2SAT 94
--- NOTE | 2022-08-11 13:47 | PC.NURSE ---
Discharge. pt has been pleasant and cooperative. knee pain 0-3 in bed and 5-7 when up she is getting po pain med. she had 3 emesis this am 50, 50 and 250. ativan zosyn given. . Dressing to right knee C/D/I. cryo cuff to the knee. CMS intact. PRN Oxycodone given. Up to chair and bathroom with 1 assist, walker and gait belt. Tolerating regular diet after emesis. went over discharge packet with pt. pt went over and signed personal belonging sheet. went over appts, medication, instruction and education. pt was given a w/c ride out. sl was d/c intact.
--- NOTE | 2022-08-12 17:03 | PC.NURSE ---
Patient called and has mistakenly received a Ventolin inhaler as perscription had been cancelled but not called to pharmacy. Patient instructed this was not a prescribed medicine and was not to be used. Understands this.
== END 2022-08-11 12:55 | disposition home or self-care (01) ==
LOC: OR 09:01 → MEDSURG 09:03
PROVIDERS: PCP Family Medicine; Visit Provider Orthopaedic Surgery Sports Medicine
PROC: (CPT 27447; principal; 2022-08-10 11:15)
DX: M17.11 Unilateral primary osteoarthritis, right knee (principal); I10 Essential (primary) hypertension; M81.0 Age-related osteoporosis without current pathological fracture; R11.2 Nausea with vomiting, unspecified
CPT/HCPCS: 27447; 01402; 36415; 73560; 76942; 82565; 84132; 84295; 84520; 85025; 97116; 97162; 97165; 99100; A9153; A9270; C1776; J0690; J1100; J2250; J2405; J2704; J2795; J3010; J3490; J7120

== ENCOUNTER 2022-12-23 11:15 | Outpatient (RCR) | payer MEDICARE, BC, SELFPAY ==
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
--- NOTE | 2022-11-13 12:42 | PT.OPDNX ---
PT David Outpatient Daily Note PT DEBRA Outpatient Daily Note Start: 08/06/22 15:59 Freq: Status: Active Protocol: Document 11/13/22 12:32 TWILA (Rec: 11/13/22 12:41 CJElsa [id number]) E-signed By KENDRICK ChavezT, MS PT OP Daily Progress Note Visit Information Note Type Recert/Progress Note Visit Number [id number] Cancellation Note Treatment Cancelled Patient-Work Conflict Insurance Information Recert Due Date 11/05/22 Insurance Name Medicare B,Blue [employer] Medical Diagnosis R knee OA RTKA 08/10/22 Treating Diagnosis Pre-post RTKA on 08/10/22 Referring MD Ascencion Tolbert Subjective Subjective Pt reports her knee is feeling better with improved oscar to walking and going up stairs. Continues to experience elevated knee swelling with increased activity levels. Performing her HEP diligently with passive ext remaining difficult. Focusing on avoiding limping but becomes difficult when she is fatigued . Pain Comments 08/14 Preferred Name Taylor Precautions Treatment Precautions/Contraindications Will be WBAT post-sx Hx of asthma, breast cancer, and osteoporosis, HTN Weight Bearing Status Weight Bear as Tolerated Home Exercise Home Exercise Comments Access Code [id number] Objective Other/Pertinent Objective R knee passive ROM = 0-7-126 R LE strength Hip flexion = R 4+/5, L 5/5 Knee ext: R 4+/5, L 5/5 Knee flex: R 4+/5, L 5/5 Hip ABD: R 4-/4, L 4+/5 Hip ext: R 4/5, L 4+/5 Gait: without AD improved velocity with decreased R toe off and decreased R stride length SLS: R 3 sec excessive sway, L 7 sec mild sway Stairs: reciprocal pattern with 1 railing and step to pattern descending 8 stairs Patient Instructed in Risks/Benefits Yes Therapeutic Exercise Therapeutic Exercise Minutes (minutes) 35 Therapeutic Exercise: To Restore Recumbent bike Seat 7 L4 7 min Functional Status for warmup Leg press progressed 110# B 3x10 and uni 65# 3 x 8 Step ups progressed 6 8 x 3 with fatigue Standing hip ABD B light UE support progressed 8 x 3 with fatigue SLS at counter light UE support with fatigue Walking august next to wall 25' x 6, 2 sets Standing TKE 3 plates 12 x 3 Side stepping Prone knee hangs Passive knee ext with 2# ankle weight at knee Manual Therapy Techniques Manual Therapy Minutes (minutes) 12 Manual Therapy Techniques TPR R distal hamstrings and popliteus Knee AP mobs G4 for ext Contract relax HS stretching in 90-90 position Treatment Minutes Timed Code Treatment Minutes 47 Total Treatment Time 47 Billing Units Manual Therapy Units 1 Therapeutic Exercise Units 2 Assessment/Impression Assessment/Impression Pt displays improved knee ext ROM and R LE NM activation and strength with resumption of PT focusing on ext ROM, static and dynamic balance, and dynamic LE strengthening. She continues to display limitations in knee ext ROM, gait dysfunction, imbalance and R LE weakness. Knee flex ROM improving but she continues to display limitations in ext ROM. Reviewed importance of pushing ext passive stretching progressing to weight across her knee and prone hangs. She responded well again to aggressive knee ext stretching and joint mobs with improved ext ROM to lacking 10 deg. Reviewed and progressed her HEP focusing on ext ROM, static and dynamic balance, and uni strengthening exercises. Pt will benefit greatly from continued skilled PT services, resuming PT 1x per week for at least 6-10 additional visits to improve oscar to daily activities and quality of gait. Plan of Care Physical Therapy Goals Within 4-6 weeks: 1.Pt will display active left knee ROM 0-120 deg to improve quality & safety of stair climbing. Progressing 2.Pt will display improved mechanics going up/down 13 stairs with a reciprocal pattern using 2 railings in order to safely get into house and 2nd floor of her home. Progressing 3. Pt will be independent with HEP to promote strength and decrease fall risk. Progressing 4.Pt will display improved left hip flex, hip ABD, quad and hamstring strength >4/5 in order to improve quality of gait without assistive device. Progressing 5.Pt will be able to stand for >15 minutes with R knee pain </= 2/10 in order to aid in meal preparation. Progressing Daily Plan of Care Continue per POC Recertification Information Initial Certification Date 08/06/22 Recertification Start Date 11/05/22 Recertification Due Date 02/03/23 Reasons to Continue Skilled Therapy See assessment Rehabilitation Potential Excellent Continued Plan of Care and Interventions Continued TE, MT, NM re-ed 1 x per week for 6-10 additional visits, transitioning to I sx management as able. Provider Signature Shows Agreement With POC & Medical Necessity Physician Comment/Change Comment or Changes Physician NPI Number #
== END 2022-12-23 12:58 | disposition home or self-care (01) ==
PROVIDERS: Visit Provider Orthopaedic Surgery Sports Medicine
DX: M17.11 Unilateral primary osteoarthritis, right knee (principal); Z51.89 Encounter for other specified aftercare
CPT/HCPCS: 97110; 97116; 97140; 97161; 97164

== ENCOUNTER 2023-05-20 12:46 | Outpatient (CLI) | payer MEDICARE, BC, SELFPAY ==
--- NOTE | 2023-05-20 13:00 | CRLHL7_ITS ---
For Patients: As a result of the Century Cures Act, medical imaging exams and procedure reports are released immediately into your electronic medical record. You may view this report before your referring provider. If you have questions, please contact your health care provider. BILATERAL SCREENING MAMMOGRAM WITH COMPUTER-AIDED DETECTION AND TOMOSYNTHESIS TECHNIQUE: CC and MLO views were obtained. These mammographic images have been obtained using full-field digital technique. These mammographic images were interpreted with the benefit of computer-aided detection. Breast Tomosynthesis was used in this interpretation. COMPARISON FILM: 08/13/21, 08/27/20, 08/17/19. FINDINGS: There are scattered areas of fibroglandular density IMPRESSION: There is no radiographic evidence for malignancy. ASSESSMENT: BI-RADS Category 1: Negative RECOMMENDATION: Routine screening mammogram in 1 year. A lay language report of this examination will be provided to the patient. Jake Hairston M.D. Diagnostic Radiologist [email or web address] YEYO/Dictated by: Jake Hairston MD @ 05/21/2023 1:35:00 PM (Electronically Signed)
== END 2023-05-20 12:47 | disposition home or self-care (01) ==
LOC: MAMMO 12:47
PROVIDERS: PCP Family Medicine; Visit Provider Internal Medicine Hematology & Oncology
DX: Z12.31 Encounter for screening mammogram for malignant neoplasm of breast (principal)
CPT/HCPCS: 77063; 77067

== ENCOUNTER 2023-11-17 16:15 | Emergency (ER) | payer MEDICARE, BC, SELFPAY ==
[2023-11-17 16:29] VITALS: BP 175/81; PULSE 96; RESP 20; TEMP 36.9; O2SAT 97; BMI 24.7
--- NOTE | 2023-11-17 17:25 | ED.GENADULT ---
HPI - General Adult General Chief complaint: Urogenital Problems, Female Stated complaint: Red streak down back, possible bladder infection Time Seen by Provider: 11/17/23 17:11 Source: patient Mode of arrival: ambulatory Limitations: no limitations History of Present Illness HPI narrative: 78-year-old female coming in today with a couple of concerns. For starters, She think she has a UTI. She states that she has increased urinary frequency but then she can not urinate. She has been urinating for the last couple of days with the frequency and the times that she sits on the toilet outweighs the actual times that she actually has urine output. She denies any fevers or chills. No nausea or vomiting. She denies any abdominal pain. Her 2nd concern today is a rash on her right flank. She states that she noticed it a couple of days ago but it is quite tender. The area is erythematous and tender. She denies bumping it or scratching it on anything. She states that it kept her up at night yesterday. Again no fevers or chills or nausea or vomiting. She denies any diarrhea. She denies any new medications. She denies the discomfort radiating upper down her back. Lastly, when she tried to leave a urine sample here she noticed which she describes as a small bubble that is not supposed to be there. She is wondering what that is. She has not noticed it before. Related Data Home Medications ?Medication ?Instructions ?Recorded ?Confirmed cholecalciferol (vitamin D3) 25 1,000 unit PO DAILY 12/22/21 11/17/23 mcg (1,000 unit) tablet denosumab 60 mg/mL subcutaneous 60 mg subcut [id number] 12/22/21 11/17/23 syringe multivitamin 1 tab PO DAILY 12/22/21 11/17/23 anastrozole 1 mg tablet 1 mg PO DAILY 12/26/21 11/17/23 amlodipine 5 mg tablet 5 mg PO DAILY 03/17/22 11/17/23 gabapentin 300 mg capsule 300 mg PO HS PRN 03/17/22 11/17/23 calcium carbonate (Oyster Shell 500 mg PO DAILY 08/10/22 11/17/23 Calcium) famotidine-Ca carb-mag hydrox 10 1 tab PO DAILY PRN 08/10/22 11/17/23 mg-800 mg-165 mg chewable tablet (Acid Straw Hat Brim Raiser Operator Complete (famotidine)) Previous Rx's ?Medication ?Instructions ?Recorded acetaminophen 500 mg capsule 500 - 1,000 mg (1 - 2 x 500 mg) PO 08/11/22 Q6H PRN #100 caps aspirin 81 mg tablet,delayed 81 mg PO BID #60 tabs 08/11/22 release celecoxib 100 mg capsule 100 mg PO BID PRN for pain #60 caps 10/09/22 hydrocortisone 2.5 % topical cream 1 applic topical BID PRN rash #30 06/02/23 grams cephalexin 500 mg capsule 500 mg PO TID 7 days #21 caps 11/17/23 Allergies Allergy/AdvReac Type Severity Reaction Status Date / Time lisinopril Allergy Mild Cough Verified 11/17/23 16:34 penicillin V Allergy Mild Rash Verified 11/17/23 16:34 Review of Systems Status of ROS: Reports: 10 or more systems reviewed and unremarkable except as noted in History and below [facility] Medical History Hypertension ?I10 - Essential (primary) hypertension (ICD-10) Breast cancer ?C50.919 - Malignant neoplasm of unspecified site of unspecified female breast (ICD-10) Uterine cyst ?N85.8 - Other specified noninflammatory disorders of uterus (ICD-10) Need for desensitization to allergens ?Z51.6 - Encounter for desensitization to allergens (ICD-10) Osteoporosis ?M81.0 - Age-related osteoporosis without current pathological fracture (ICD-10) 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) History of colon polyps ?Z86.010 - Personal history of colonic polyps (ICD-10) History of breast cancer ?Z85.3 - Personal history of malignant neoplasm of breast (ICD-10) Anemia ?D64.9 - Anemia, unspecified (ICD-10) Arthritis ?M19.90 - Unspecified osteoarthritis, unspecified site (ICD-10) History of back problems Asthma ?J45.909 - Unspecified asthma, uncomplicated (ICD-10) Surgical History Status post meniscectomy (12/29/21) ?Z98.890 - Other specified postprocedural states (ICD-10) 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) ?Z96.651 - Presence of right artificial knee joint (ICD-10) S/P right knee arthroscopy ?Z98.890 - Other specified postprocedural states (ICD-10) Status post right breast lumpectomy ?Z98.890 - Other specified postprocedural states (ICD-10) Hx of cataract surgery ?Z98.49 - Cataract extraction status, unspecified eye (ICD-10) History of left elbow replacement (~06/2019) ?Z96.622 - Presence of left artificial elbow joint (ICD-10) 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 Sister Breast cancer High blood pressure Social History Narrative: She lives with her . They recently sold their Immediately home and have moved into a 1 level town home. She does not smoke. She drinks alcohol about once a month. Highest level of school completed/degree received: some college, no degree Smoking Status: Never smoker Do you use any of these nicotine containing products: None Second hand tobacco smoke exposure: No How often do you have a drink containing alcohol: monthly or less Alcohol type: wine How many standard drinks containing alcohol do you have on a typical day: 1 or 2 How often do you have six or more drinks on one occasion: Never AUDIT-C Alcohol total score: 1 Non-prescribed substance use: denies use Caffeine: No Are you using contraception or practicing any form of control: No service: No Exam Narrative: Exam Narrative: Well-nourished well-developed patient in no acute distress. Alert and oriented. Answers questions appropriately. Mood and affect are appropriate. Thoughts are goal oriented and rational. No tangential or magical thinking noted. Patient speaks in full sentences without needing to catch her breath. HEENT: Normocephalic atraumatic. Pupils are equally round reactive to light. Extraocular muscles are intact. Conjunctivae are moist without any icterus noted. Moist mucous membranes. Cardiovascular: Heart is regular rate and rhythm S1 and S2 are present without any murmurs. Lungs: Clear to auscultation bilaterally no wheezes rhonchi or rales are appreciated. Patient takes deep breaths without any discomfort. Abdomen: Soft and nontender nondistended with normal bowel sounds. No guarding or rebound. : The patient points to a very small skin tag located perirectally. It is not swollen or inflamed. It is not tender to touch. Extremities: Bilateral lower extremities are without edema. Skin: Well perfused. Patient has on her right flank, a small area of erythema that is approximately 2 cm in length and 1 cm in width. The area is slightly raised and surrounding it, the skin is pink. The area is warm to touch, the skin is not indurated and there is no swelling noted. Const: Vital Signs, click to edit/add: Vital Signs - 24 hr 11/17/23 16:29 Temperature 98.4 F Pulse Rate [Pulse Oximeter] 96 Respiratory Rate 20 Blood Pressure [Ri ght Upper Arm] 175/81 H Pulse Oximetry 97 Course Vital Signs Vital signs: Initial Vital Signs Temperature 98.4 F 11/17/23 16:29 Temperature Source Temporal Artery Scan 11/17/23 16:29 Pulse Rate 96 11/17/23 16:29 Pulse Rhythm Regular 11/17/23 16:29 Respiratory Rate 20 11/17/23 16:29 Blood Pressure 175/81 H 11/17/23 16:29 Blood Pressure Mean 112 H 11/17/23 16:29 Blood Pressure Position Sitting 11/17/23 16:29 Pulse Oximetry 97 11/17/23 16:29 Vital Signs Temperature 98.4 F 11/17/23 16:29 Pulse Rate 96 11/17/23 16:29 Respiratory Rate 20 11/17/23 16:29 Blood Pressure 175/81 H 11/17/23 16:29 Pulse Oximetry 97 11/17/23 16:29 Temperature 98.4 F 11/17/23 16:29 Pulse Rate 96 11/17/23 16:29 Respiratory Rate 20 11/17/23 16:29 Blood Pressure 175/81 H 11/17/23 16:29 Pulse Oximetry 97 11/17/23 16:29 Medical Decision Making MDM Narrative Medical decision making narrative: 78-year-old female with symptoms of urinary tract infection. Patient states that the last time she had a took several hours for a urine sample and she would rather have it treated and not tested at this time. Therefore will treat her with Keflex 3 times a day. Rash on her back unclear etiology. Potential causes include trauma to the area verses involving cellulitis. In the event that it is cellulitis will go ahead and treat with that same Keflex. Lastly skin tag perirectally, patient was reassured. I am not 100% clear if this is actually what she felt when she urinated however this is what she pointed to when I examined her. If she feels like there is a continued problem I would recommend she follow up with her primary care provider. Discharge Plan Discharge Clinical Impression: UTI (urinary tract infection), Rash Patient Disposition: Home, Self-Care Condition: Stable Additional Instructions: Take all antibiotics as prescribed. Increase fluid intake over the next few days. Follow-up with your primary care provider if you continue to feel discomfort or abnormality when you urinate. Prescriptions: New cephalexin 500 mg capsule 500 mg PO TID 7 Days Qty: 21 0RF No Action gabapentin 300 mg capsule 300 mg PO HS PRN amlodipine 5 mg tablet 5 mg PO DAILY denosumab 60 mg/mL syringe 60 mg subcut [id number] Rx Instructions: PATIENT RECEIVES EVERY 6 MONTHS OUT PATIENT INFUSION cholecalciferol (vitamin D3) 25 mcg (1,000 unit) tablet 1,000 unit PO DAILY multivitamin Tablet 1 tab PO DAILY anastrozole 1 mg tablet 1 mg PO DAILY calcium carbonate [Oyster Shell Calcium] 500 mg calcium (1,250 mg) tablet 500 mg PO DAILY Acid Straw Hat Brim Raiser Operator Complete (famot) 10-800-165 mg tablet,chewable 1 tab PO DAILY PRN aspirin 81 mg tablet,delayed release (DR/EC) 81 mg PO BID Qty: 60 0RF Rx Instructions: Medication to help prevent blood clots postoperatively; take TWICE daily. acetaminophen 500 mg capsule 500 - 1,000 mg PO Q6H MDD 4000mg PRNQty: 100 0RF celecoxib 100 mg capsule 100 mg PO BID PRN (Reason: for pain) Qty: 60 0RF hydrocortisone 2.5 % cream 1 applic topical BID PRN (Reason: rash) Qty: 30 1RF Follow Up/Referrals: Kinsey Hart MD [Primary Care Provider] - Stand Alone Forms: [employer] Info Instructions
== END 2023-11-17 17:45 | disposition home or self-care (01) ==
PROVIDERS: Emergency Provider Family Medicine; PCP Family Medicine
DX: N39.0 Urinary tract infection, site not specified (principal); R21 Rash and other nonspecific skin eruption
CPT/HCPCS: 81001; 99283; 99284

== ENCOUNTER 2024-02-25 12:04 | Outpatient (CLI) | payer MEDICARE, BC, SELFPAY ==
--- OUTSIDE RECORDS SUMMARY | 2024-02-25 12:06 | XMS_ITS | Continuity of Care Document ---
Author Organization [facility] Address [address] [place] [address] Phone Care Team Providers Care Manager Biologics Name Role Phone Ally Davis MD Unavailable Unavailable Procedures Procedure Date Office/outpatient visit,[facility] [place] [facility] X-ray exam of total spine Advance Directives Directive Yes / No Effective Date File Name No Information Encounters Encounter Description Practice Location Reason(s) For Visit Diagnoses Date Provider Providers Copied on Encounter Office/outpat ient visit,[facility] [place], [address], [address], [place] tel:[phone] [facility] No Information Susan Canales. [facility] [place], [address] [place] [address] [address], [place], [id number] , [place]. tel:[phone] Referring Provider: Enrique Hunter, [address], [address]. tel:[phone] Family History Family Member Type Diagnosis Age At Onset No Information Payers Payer name Insurance type Covered alliance party ID Authorreynaldoa tidevin([place]) [id number] Social History Type Description Quantity Date Captured Comments Sex Female Smoking Status No Information Vital Signs Date / Time: Height Weight BMI Pulse Rate Blood Pressure Temperature Respiratory Rate Body Surface Area Head Circumference Head Circ. Percentile Wt./[place]armelo. Percentile BMI percentile Pulse Ox Inhaled Ox 8:31 AM 68.10 in 78.070 kg (171.80 lbs) 26.0 7 kg/m eter (2) Chief Complaint And Reason For Visit No Information Reason For Referral Reason For Referral No Information History Of Present Illness Encounter Date Complaint History Of Prese nt Illness No Information Functional Status Date Functional Assessmen t No Information Instructions Date Instruction Additional Infor mation No Information Assessments Type Assessment Date No Information Patient Care Teams Name Effective Dates (start - stop) Status Members No Information
== END 2024-02-25 12:05 | disposition home or self-care (01) ==
LOC: NFLDREF 12:04
PROVIDERS: PCP Family Medicine; Visit Provider Obstetrics & Gynecology
DX: R35.0 Frequency of micturition (principal)
CPT/HCPCS: 87086

== ENCOUNTER 2024-05-20 16:05 | Emergency (ER) | payer MEDICARE, BC, SELFPAY ==
[2024-05-20 16:42] VITALS: BP 185/105; PULSE 89; RESP 22; TEMP 37.3; O2SAT 97; BMI 23.9
--- NOTE | 2024-05-20 16:52 | ED.GENADULT ---
HPI - General Adult General Chief complaint: Cough Stated complaint: covid+ Time Seen by Provider: 05/20/24 16:41 History of Present Illness HPI narrative: Patient is a 79-year-old woman who has been having a cough for last several days. She did test positive today for COVID-19. She has a oxygen saturation 97% on room air. She has had no productive cough no fevers no chills no night sweats no nausea no vomiting. She has had no new recent sick contacts. She is on stable medication. Related Data Home Medications ?Medication ?Instructions ?Recorded ?Confirmed cholecalciferol (vitamin D3) 25 1,000 unit PO DAILY 12/22/21 03/20/24 mcg (1,000 unit) tablet denosumab 60 mg/mL subcutaneous 60 mg subcut [id number] 12/22/21 03/20/24 syringe multivitamin 1 tab PO DAILY 12/22/21 03/20/24 anastrozole 1 mg tablet 1 mg PO DAILY 12/26/21 03/20/24 amlodipine 5 mg tablet 5 mg PO DAILY 03/17/22 03/20/24 calcium carbonate (Oyster Shell 500 mg PO DAILY 08/10/22 03/20/24 Calcium) famotidine-Ca carb-mag hydrox 10 1 tab PO DAILY PRN 08/10/22 03/20/24 mg-800 mg-165 mg chewable tablet (Acid Electrification Adviser Complete (famotidine)) Previous Rx's ?Medication ?Instructions ?Recorded acetaminophen 500 mg capsule 500 - 1,000 mg (1 - 2 x 500 mg) PO 08/11/22 Q6H PRN #100 caps hydrocortisone 2.5 % topical cream 1 applic topical BID PRN rash #30 06/02/23 grams nirmatrelvir 300 mg (150 mg See Rx Instructions PO .COMPLEX 05/20/24 x2)-ritonavir 100 mg tablet,dose #30 ea pack (Paxlovid) Allergies Allergy/AdvReac Type Severity Reaction Status Date / Time lisinopril Allergy Mild Cough Verified 03/20/24 10:16 penicillin V Allergy Mild Rash Verified 03/20/24 10:16 Review of Systems Status of ROS: Reports: 10 or more systems reviewed and unremarkable except as noted in History and below [facility] Medical History Hypertension ?I10 - Essential (primary) hypertension (ICD-10) Breast cancer ?C50.919 - Malignant neoplasm of unspecified site of unspecified female breast (ICD-10) Uterine cyst ?N85.8 - Other specified noninflammatory disorders of uterus (ICD-10) Need for desensitization to allergens ?Z51.6 - Encounter for desensitization to allergens (ICD-10) Osteoporosis ?M81.0 - Age-related osteoporosis without current pathological fracture (ICD-10) 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) History of colon polyps ?Z86.010 - Personal history of colonic polyps (ICD-10) History of breast cancer ?Z85.3 - Personal history of malignant neoplasm of breast (ICD-10) Anemia ?D64.9 - Anemia, unspecified (ICD-10) Arthritis ?M19.90 - Unspecified osteoarthritis, unspecified site (ICD-10) History of back problems Asthma ?J45.909 - Unspecified asthma, uncomplicated (ICD-10) Surgical History H/O decompression of ulnar nerve (06/15/19) ?Z98.890 - Other specified postprocedural states (ICD-10) Status post meniscectomy (12/29/21) ?Z98.890 - Other specified postprocedural states (ICD-10) 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) ?Z96.651 - Presence of right artificial knee joint (ICD-10) S/P right knee arthroscopy ?Z98.890 - Other specified postprocedural states (ICD-10) Status post right breast lumpectomy ?Z98.890 - Other specified postprocedural states (ICD-10) Hx of cataract surgery ?Z98.49 - Cataract extraction status, unspecified eye (ICD-10) 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 Sister Breast cancer High blood pressure Social History Narrative: She lives with her . They recently sold their 2 story home and have moved into a 1 level town home. She does not smoke. She drinks alcohol about once a month. Highest level of school completed/degree received: some college, no degree Smoking Status: Never smoker Do you use any of these nicotine containing products: None Second hand tobacco smoke exposure: No How often do you have a drink containing alcohol: monthly or less Alcohol type: wine How many standard drinks containing alcohol do you have on a typical day: 1 or 2 How often do you have six or more drinks on one occasion: Never AUDIT-C Alcohol total score: 1 Non-prescribed substance use: denies use Caffeine: No Are you using contraception or practicing any form of control: No service: No Exam Narrative: Exam Narrative: EXAM GENERAL: Patient appears comfortable and well. EYES: No scleral icterus. ENT: Tympanic membranes and oropharynx normal. THYROID: no thyroid nodules or thyromegaly. LYMPH: No supraclavicular or cervical lymphadenopathy. SKIN: Visible skin seen during exam normal or with benign process only. EXT: No dependent lower extremity pedal edema. HEART: Regular rate and rhythm with no murmurs, rubs, or gallops. LUNGS: Clear to auscultation bilaterally with no crackles or wheezes. ABD: Soft, non tender, non distended. PSYCH: Good eye contact, speech is not pressured. Const: Vital Signs, click to edit/add: Vital Signs - 24 hr 05/20/24 16:42 Temperature 99.1 F Pulse Rate [Pulse Oximeter] 89 Respiratory Rate 22 Blood Pressure [Ri ght Upper Arm] 185/105 H Pulse Oximetry 97 Course Course ED Course: Patient seen and examined. Vital Signs Vital signs: Initial Vital Signs Temperature 99.1 F 05/20/24 16:42 Temperature Source Temporal Artery Scan 05/20/24 16:42 Pulse Rate 89 05/20/24 16:42 Pulse Rhythm Regular 05/20/24 16:42 Respiratory Rate 22 05/20/24 16:42 Blood Pressure 185/105 H 05/20/24 16:42 Blood Pressure Mean 131 H 12/14/24 16:42 Blood Pressure Position Supine 05/20/24 16:42 Pulse Oximetry 97 05/20/24 16:42 Vital Signs Temperature 99.1 F 05/20/24 16:42 Pulse Rate 89 05/20/24 16:42 Respiratory Rate 22 05/20/24 16:42 Blood Pressure 185/105 H 05/20/24 16:42 Pulse Oximetry 97 05/20/24 16:42 Temperature 99.1 F 05/20/24 16:42 Pulse Rate 89 05/20/24 16:42 Respiratory Rate 22 05/20/24 16:42 Blood Pressure 185/105 H 05/20/24 16:42 Pulse Oximetry 97 05/20/24 16:42 Medical Decision Making MDM Narrative Medical decision making narrative: Patient is a 79-year-old woman who presents with COVID-19. She would like PACs lipid. I did review her medications and I do think she needs to go down on her amlodipine dose while she is on Paxil of id. Did send in Paxil of it for her. She seems to be in no distress has a normal exam and normal vital signs. Discharge Plan Discharge Clinical Impression: COVID-19 Patient Disposition: Home, Self-Care Condition: Stable Instructions: COVID-19 (Coronavirus Disease 2019) (ED) Additional Instructions: Paxil of it as directed. Cut dose of amlodipine in half for take every other day during treatment with Paxil of id Follow-up with her doctor as needed. Activity Level: No Restrictions Discharge Diet: Regular Prescriptions: New Paxlovid 300 mg (150 mg x 2)-100 mg tablets,dose pack See Rx Instructions .ROUTE .COMPLEX Qty: 30 0RF Rx Instructions: take TWO 150 mg tablets of nirmatrelvir with ONE 100 mg tablet of ritonavir twice daily for 5 days No Action amlodipine 5 mg tablet 5 mg PO DAILY denosumab 60 mg/mL syringe 60 mg subcut [id number] Rx Instructions: PATIENT RECEIVES EVERY 6 MONTHS OUT PATIENT INFUSION cholecalciferol (vitamin D3) 25 mcg (1,000 unit) tablet 1,000 unit PO DAILY multivitamin Tablet 1 tab PO DAILY anastrozole 1 mg tablet 1 mg PO DAILY calcium carbonate [Oyster Shell Calcium] 500 mg calcium (1,250 mg) tablet 500 mg PO DAILY Acid Electrification Adviser Complete (famot) 10-800-165 mg tablet,chewable 1 tab PO DAILY PRN acetaminophen 500 mg capsule 500 - 1,000 mg PO Q6H MDD 4000mg PRNQty: 100 0RF hydrocortisone 2.5 % cream 1 applic topical BID PRN (Reason: rash) Qty: 30 1RF Follow Up/Referrals: Kinsey Hart MD [Primary Care Provider] - Stand Alone Forms: [employer] Info Instructions
== END 2024-05-20 17:17 | disposition home or self-care (01) ==
LOC: ED 17:01
PROVIDERS: Emergency Provider Internal Medicine; PCP Family Medicine
DX: U07.1 COVID-19 (principal)
CPT/HCPCS: 99283

== ENCOUNTER 2024-11-08 10:00 | Outpatient (RCR) | payer MEDICARE, BC, SELFPAY | END 2024-11-08 10:35 | disposition home or self-care (01) | PROVIDERS: PCP Family Medicine; Visit Provider Family Medicine | DX: M54.50 Low back pain, unspecified (principal); Z51.89 Encounter for other specified aftercare | CPT/HCPCS: 97110; 97140; 97162 ==

== ENCOUNTER 2025-03-20 10:30 | Outpatient (RCR) | payer MEDICARE, BC, SELFPAY | END 2025-06-04 15:17 | disposition home or self-care (01) | PROVIDERS: PCP Family Medicine; Visit Provider Family Medicine | DX: M25.561 Pain in right knee (principal); Z51.89 Encounter for other specified aftercare | CPT/HCPCS: 97110; 97140; 97162 ==